=== PATIENT | female | born 1970 | race African-American/Black ===

== ENCOUNTER 2024-10-10 14:38 | Outpatient (CLI) | payer BC, SELFPAY ==
--- NOTE | ~2024-10-10 | US_ITS ---
EXAMINATION: US transvaginal INDICATION: Postmenopausal bleeding Comparison:No prior studies for comparison. TECHNIQUE: Multiple transabdominal and endovaginal sonographic images of the pelvis performed. FINDINGS: The uterus measures 8.6 x 4.6 x 5.8 cm. There are uterine fibroids present, largest measuri ng 2 cm. The endometrial complex measures 6 mm. The right ovary is not visualized. Left ovary is enlarged containing multiple cysts. Left ovary measu res 7.5 x 3.9 x 4.7 cm. There are 2 simple cysts, largest measuring 5.2 x 3.7 x 4.4 cm. There is no free fluid in the pelvis. There are no abnormal masses seen on either side. IMPRESSION: 1. Multiple left ovarian cysts, largest measuring 5.2 cm. Differential diagnosis includes functional cysts, cystadenoma and less likely cystadenocarcinoma. 2: Thickened endomtrial complex. The differential diagnosis includes endometrial hyperplasia, polyp a nd carcinoma. Biopsy is recommended. Reviewed, dictated and finalized at location A. IMPRESSION: 1. Multiple left ovarian cysts, largest measuring 5.2 cm. Differential diagnosi s includes functional cysts, cystadenoma and less likely cystadenocarcinoma. 2: Thickened endomtrial complex. The differential diagnosis includes endometria l hyperplasia, polyp and carcinoma. Biopsy is recommended.
== END 2024-10-10 14:39 | disposition home or self-care (01) ==
LOC: MICIMG 14:41
PROVIDERS: PCP Obstetrics & Gynecology Gynecology; Visit Provider Obstetrics & Gynecology Gynecology
DX: R93.89 Abnormal findings on diagnostic imaging of other specified body structures (principal); N83.202 Unspecified ovarian cyst, left side
CPT/HCPCS: 76830

== ENCOUNTER 2024-11-03 00:37 | Day surgery (SDC) | payer BC, SELFPAY ==
--- NOTE | 2024-10-30 11:11 | PC.NURSE ---
Report to the Outpatient Waiting Room, entrance under the green pavilion located off [facility], at time __7:30 AM on date __11/03/24 . Planned Procedure Time: ___9:30 AM .? Time changes happen often and if your time is changed the preop area will call you the afternoon before. - You and your visitor will be asked to self-screen and do not enter if you have any COVID symptoms. Please call surgeon if you need to reschedule. - A mask is optional within the hospital at this time. Patients may have clear liquids (water, carbonated beverages, clear teas, apple juice) until 3 hours prior to surgery ( 6:30 AM) with a maximum of 20 ounces. - No food from midnight until time of surgery and no smoking, or chewing tobacco (or any form of nicotine). No chewing gum, candy or mints. Take only the following medications with a SIP of water on the morning of surgery: NONE DO NOT STOP ANY OF YOUR OTHER PRESCRIPTION MEDICATIONS PRIOR TO SURGERY EXCEPT THE FOLLOWING Hold all vitamins and supplements for 3 days per anesthesiologist.LAST DOSE 10/30/24 Medications to discontinue per physician NONE Please no make-up, nail andorran, hairspray, perfume, deodorant, or body powder the day of surgery.? No jewelry (including any body piercings) or valuables the day of surgery, leave them at home.? Please take a shower or bath the night before, or the morning of, surgery with an antibacterial soap.? Wear comfortable, loose fitting clothing.? Children are encouraged to wear pajamas. - Jewelry must be removed prior to entering the operating room.? Rings and piercings that are not removed may be cut off. - The hospital will not accept responsibility for valuables.? - Please leave all valuables, including medications, at home the day of surgery. If you are going home after surgery, a licensed piledriver carpenter must drive you home.? - NO public transportation without another adult if you receive anesthesia. - We recommend that an adult stay with you for 24 hours following discharge. - We also recommend that you do not drive, make important decision, drink alcoholic beverages, or take any drugs that were not prescribed by your health care provider for at least 24 hours after your discharge time. For Pediatric surgeries, we recommend two adults accompany the child home. Follow any additional instructions given to you from your surgeon. Telephone instructions given to __PATIENT and asked if any additional questions and then verbalized understanding. Patient advised to call surgeon office or pre surgery nurse liaison [phone] if any additional questions.
[2024-10-30 11:25] VITALS: BMI 31.6
--- NOTE | 2024-11-03 07:30 | WPDHPUPDATE1 ---
History and Physical Update Update Date/Time: 11/03/24 07:30 History and Physical has been reviewed, including an updated exam of the patient. There are NO changes in the patient's condition. Risks, benefits, and alternatives have been discussed and questions answered. Patient agrees to proceed with procedure.
--- NOTE | 2024-11-03 07:30 | PM.HPGS ---
History of Present Illness History of Present Illness Consent: Risks, benefits, and alternatives have been discussed and questions answered. Patient agrees to proceed with procedure. Chief complaint: Post Menopausal Bleeding Narrative: Valeri Storey is a 54 year old female with postmenopausal bleeding and a thickened endometrium. It was recommended to undergo D&C hysteroscopy for further evaluation. Risks of infection, bleeding, perforation, and possible pathology are reviewed. Patient voices understanding and agrees to proceed. Review of Systems Review of Systems: not repeated day of surgery; patient states no changes in status PMFSH Past Medical History Medical History (Updated 11/03/24 @ 07:33 by Юлия Davis MD) Borderline diabetes (normal spontaneous vaginal delivery) Surgical History Surgical History (Updated 11/03/24 @ 07:33 by Юлия Davis MD) History of right breast biopsy History of hysteroscopy 2014 with polyp was History of laparoscopy 2004 and 2005 for ovarian cyst Social History Social History Smoking status: Never smoker Living arrangements: with family Spiritual care concerns: No Meds Home Medications and Allergies Home Medications ?Medication ?Instructions ?Recorded ?Confirmed ?Type ergocalciferol (vitamin D2) 1,250 50,000 unit PO WEEKLY 10/30/24 10/30/24 History mcg (50,000 unit) capsule ferrous sulfate 325 mg (65 mg 325 mg PO DAILY 10/30/24 10/30/24 History iron) tablet (FeroSul) Allergies Allergy/AdvReac Type Severity Reaction Status Date / Time No Known Allergies Allergy Verified 10/30/24 11:04 Exam Const: General: healthy appearing and alert Orientation/consciousness: patient oriented x3 Resp: Effort & Inspection: normal respiratory effort : External Female Exam: normal external appearance Speculum Exam - Vagina: normal appearance of the vagina and normal vaginal discharge Speculum Exam - Cervix: normal appearance of the cervix Bimanual exam- vagina & uterus: uterine size normal and consistency normal Bimanual Exam- Adnexa, other: normal adnexae and No adnexal tenderness Neuro: General: patient oriented x3 Assessment and Plan Assessment and plan (1) Post-menopausal bleeding: Code(s): N95.0 - Postmenopausal bleeding Status: Acute
[2024-11-03 08:30] VITALS: BP 133/87; PULSE 77; RESP 14; TEMP 36.4; O2SAT 100
[2024-11-03] MEDS: LACTATED RINGERS 1,000 ML 30 ML IV CONT (08:30)
[2024-11-03] MEDS: ACETAMINOPHEN 500 MG TABLET 1000 MG PO (08:30)
--- NOTE | 2024-11-03 08:36 | WPDANESEPPF ---
Anes - Initial Pre Proc Eval Procedure: Operation Date: 11/03/24 09:30 Proposed Procedures p Hysteroscopy Dilation and Curettage - Юлия Davis MD Date/Time: 11/03/24 08:36 Surgeon: Юлия Davis MD Pre Op Diagnosis: Post Menopausal Bleeding Patient Data Age: 54 Gender: F Height: 1.73 m Weight: 94.35 kg Allergies Allergy/AdvReac Type Severity Reaction Status Date / Time No Known Allergies Allergy Verified 10/30/24 11:04 Home Medications ?Medication ?Instructions ?Recorded ?Confirmed ?Type ergocalciferol (vitamin D2) 1,250 50,000 unit PO WEEKLY 10/30/24 10/30/24 History mcg (50,000 unit) capsule ferrous sulfate 325 mg (65 mg 325 mg PO DAILY 10/30/24 10/30/24 History iron) tablet (FeroSul) Patient hx anesthesia problems: none Family hx anesthesia problems: none Results Review: All pre-operative results and documents have been reviewed as part of the pre-operative evaluation. [facility] Past Medical History Medical History (Updated 11/03/24 @ 07:33 by Юлия Davis MD) Borderline diabetes (normal spontaneous vaginal delivery) Surgical History Surgical History (Updated 11/03/24 @ 07:33 by Юлия Davis MD) History of right breast biopsy History of hysteroscopy 2014 with polyp was History of laparoscopy 2004 and 2005 for ovarian cyst Social History Social History Smoking status: Never smoker Living arrangements: with family Spiritual care concerns: No Anes - Eval Final PreProcedure Day of Procedure 11/03/24 08:36 Patient weight: obese Heart: regular rate and rhythm Lungs: clear to auscultation Airway: Mallampati scale class II Neurological: alert and oriented Last oral intake: >/= 8 hours ASA classification: II Emergent: no Anesthetic plan: proceed Anesthesia type and monitoring: general GIVS and standard monitoring Results Review: All pre-operative results and documents have been reviewed as part of the pre-operative evaluation. Informed Consent: The patient's anesthetic plan and its attendant risks and benefits were discussed with the patient/family/POA. Questions were solicited and answers provided to the satisfaction of the patient/family/POA.
[2024-11-03 08:59] LABS: BEDSIDEPREGUCG Negative (Negative)
[2024-11-03] MEDS: KETOROLAC 30 MG/ML VIAL (*BKC) IV PUSH (09:15)
--- NOTE | 2024-11-03 09:15 | S_PTH ---
PATIENT: Valeri Storey LOC: [facility] U#:[id number] AGE/SX: 54/F ROOM: RE11/03/[address]: Юлия Davis MD : 1970 BED: DIS: 11/03/2024 SPEC #: [id number] RECD: 11/03/24 10:41 STATUS: ADE REQ #: [id number] SINA: 11/03/24 09:[address]: Юлия Davis DEPT: [facility] Surgical RECD BY: Denia Sousa ENTERED: 11/03/24 10:41 SP TYPE: Surgical OTHR DR: Terence Allan ([place])MD Tissues: A - Endometrial Curettings Procedures: Hematoxylin and Eosin Stain Gross and Microscopic Level 4
--- NOTE | 2024-11-03 09:23 | W.PM.PROC2 ---
Procedure Note - Detailed Date of Procedure 11/03/24 Pre-op Diagnosis Post Menopausal Bleeding Post-op Diagnosis Same Procedure Performed D&C hysteroscopy Surgeon Юлия Davis MD Anesthesia MAC Findings Uterus sounds to 8cm and appears grossly atrophic. Description of Procedure The patient was taken to the operating room and placed under anesthesia in the dorsal lithotomy position. She was prepped and draped in the usual sterile fashion. Rembert speculum was placed in the vagina and the cervix was grasped on the anterior lip with a tenaculum. The uterus is sounded to 8cm. The diagnostic hysteroscope was placed and with no abnormalities noted it is removed. The sharp curette was used to curette the endometrium until a good uterine cry was noted in all areas. Minimal material was obtained consistent with the atrophic appearance. All instruments are removed. The patient was awakened from anesthesia and taken to recovery in stable condition. Sponge, needle, and instrument counts are correct per the OR staff. Estimated Blood Loss 5 Drains No Packing No Pathology Yes (Endometrial curettings) Complications No immediate complications Condition Stable Disposition PACU
[2024-11-03 09:24] VITALS: BP 97/59; PULSE 70; RESP 14; O2SAT 100
[2024-11-03 09:50] VITALS: BP 97/59; PULSE 69; RESP 14; O2SAT 100
--- NOTE | 2024-11-03 10:25 | SUR.PHASEII ---
HYSTEROSCOPY D/C INSTRUCTIONS GIVEN TO PATIENT, NOT HYSTERECTOMY INSTRUCTIONS.
== END 2024-11-03 10:26 | disposition home or self-care (01) ==
PROVIDERS: PCP Internal Medicine; Visit Provider Obstetrics & Gynecology Gynecology
PROC: 0U5B8ZZ Destruction of Endometrium, Via Natural or Artificial Opening Endoscopic (ICD-10-PCS; CPT 58563; principal; 2024-11-03 09:30)
DX: N95.0 Postmenopausal bleeding (principal); N85.8 Other specified noninflammatory disorders of uterus; E66.9 Obesity, unspecified; Z68.32 Body mass index [BMI] 32.0-32.9, adult
CPT/HCPCS: 58558; 88305; A9270; J1100; J1885; J2003; J2250; J2405; J2704; J3010; J7120